=== PATIENT | female | born 1975 | race Caucasian/White ===

== ENCOUNTER → 2016-10-01 | Outpatient (CLI) | payer BC | LOC: YCFC.O 11:35 | PROVIDERS: ATTEND Anesthesiology Pain Medicine | DX: Z79.891 Long term (current) use of opiate analgesic (principal) ==

== ENCOUNTER → 2017-07-10 | Outpatient (CLI) | payer BC | END | disposition home or self-care (01) | LOC: GMAJ 15:06 | PROVIDERS: ATTEND Family Medicine | DX: Z00.00 Encounter for general adult medical examination without abnormal findings (principal) ==

== ENCOUNTER → 2017-07-16 | Outpatient (CLI) | payer BC ==
--- NOTE | 2017-07-17 15:50 | MAM ---
EXAM DESCRIPTION: 3D Screening BILATERAL : Digital Mammography. CLINICAL HISTORY: 41 years Female SCREENING . No complaints. No family history of breast cancer. Premenopausal.. COMPARISON: Baseline study at this facility.. No prior reports available. TECHNIQUE: Bilateral CC and MLO projection full-field images, 3-D tomosynthesis digital mammographic technique. Also bilateral synthesized CC/ MLO full-field images. CAD not utilized. FINDINGS: The breast parenchymal density pattern is: Heterogeneously dense breast tissue, which may obscure small masses. No skin thickening or nipple retraction bilateral solitary microcalcifications. Mass Density or densities in the upper outer quadrant of the posterior third of the left breast at the 130 clock position. Mostly smooth borders with radiolucent breast tissue surrounding the mass. 3.7 cm diameter, slightly more dense than the surrounding tissues, not associated with microcalcifications. 9.4 cm from the nipple. Coarse calcification posterior superior right breast. No focal, stellate mass or density, focal asymmetry , and no suspicious microcalcifications right breast. IMPRESSION: BI-RADS CATEGORY: 0 - INCOMPLETE- Need additional imaging evaluation. FOLLOW-UP: Recall for additional imaging: Targeted of the region of interest upper outer quadrant posterior left breast.. Written communication concerning the IMPRESSION and Follow-up, will be mailed to the patient and referring health care provider. Electronically signed by: Kvng Strong MD 07/17/2017 3:49 PM CDT
== END | disposition home or self-care (01) ==
LOC: MAMMO 10:12
PROVIDERS: ATTEND Family Medicine
DX: Z12.31 Encounter for screening mammogram for malignant neoplasm of breast (principal)
CPT/HCPCS: 77063; G0202

== ENCOUNTER → 2017-07-24 | Outpatient (CLI) | payer BC ==
--- NOTE | 2017-07-25 11:09 | US ---
EXAM DESCRIPTION: Breast,Left: Ultrasound CLINICAL HISTORY: 41 yearsFemaleABNORMAL MAMMO COMPARISON: Digital 3-D tomosynthesis left breast on this visit. 3-D tomosynthesis bilateral screening 07/16/2017. TECHNIQUE: Transcutaneous scanning of the left upper outer quadrant breast utilizing two-dimensional and Doppler modes. Scanning performed by the medical collections with Dr. Strong observation. FINDINGS: Large anechoic mass with well-defined jackson, parallel orientation and posterior acoustic enhancement in the axillary tail at 200 clock position 6 cm posterior to the nipple. Largest dimension 3.2 cm, nonvascular, most likely a cyst. Abutting smaller cyst measuring 7.2 mm. Hypoechoic lobulated mass in the adjacent tissues measuring 6.6 x 4.4 mm with echogenic center but not vascular; probable lymph node. At the 1200 clock position 3 cm from the nipple is a lobulated structure with well-defined jackson, nonvascular. Dimensions are 7.2 x 4.1 cm. Parallel orientation and posterior acoustic enhancement. Possible cystic cluster. IMPRESSION: BI-RADS CATEGORY: 2 - BENIGN FINDINGS. FOLLOW UP: Return to routine digital bilateral mammographic screening, one year interval from June 2017. Written communication explaining the IMPRESSION and follow-up, will be mailed to the patient and referring health care provider. According to the [employer], yearly mammograms are recommended starting at age 40 and continuing as long as a woman is in good health. Any breast change noted on a breast self-exam should be reported promptly to the patient's healthcare provider. Breast MRI is recommended for women with an approximately 20-25% or greater lifetime risk of breast cancer, including women with a strong family history of breast or ovarian cancer and women who have been treated for Hodgkin's disease. A negative mammographic report should not delay tissue diagnosis in patients with significant clinical history or physical findings. Extremely dense breast tissue limits the sensitivity of digital mammography. The FINDINGS and the follow-up plan were reviewed in person with the patient after the examination. Written communication explaining the IMPRESSION and follow-up will be mailed to the patient and referring care provider. Electronically signed by: Kvng Strong MD 07/25/2017 11:07 AM CDT
== END | disposition home or self-care (01) ==
LOC: US 13:31
PROVIDERS: ATTEND Family Medicine

== ENCOUNTER → 2019-07-08 | Outpatient (CLI) | payer BC ==
--- NOTE | 2019-07-10 16:04 | MAM ---
EXAM DESCRIPTION: 3D Screening BILATERAL : Digital Mammography. CLINICAL HISTORY: 43 years Female ANNUAL SCREENING . No complaints. No personal or family history of breast cancer. Menarche 17. Childbirth. Premenopausal. No HRT. Lifetime risk of developing breast cancer (Tyrer-Cuzick model)(%): 10. 0 COMPARISON: Bilateral screening digital breast tomosynthesis 07/16/2017. Diagnostic left breast mammography and ultrasound July 2017. TECHNIQUE: Bilateral CC and MLO projection full-field images, digital tomosynthesis mammographic technique. Bilateral digital 2-D full-field MLO images. CAD not available for tomosynthesis or 2-D images. FINDINGS: The breast parenchymal density pattern is: Heterogeneously dense breast tissue, which may obscure small masses. No skin thickening or nipple retraction. Skin mole posterior upper left breast, and posterior inferior right breast. Bilateral calcifications. The cyst seen in the upper outer quadrant of the posterior third of the left breast on the prior mammogram and ultrasound is enlarging. No change in the margins that are visualized. There are adjacent microcalcifications.. No new focal, stellate mass or density, focal asymmetry , and no suspicious microcalcifications right breast. IMPRESSION: Enlarging mass in the upper outer quadrant of the posterior third of the left breast is most likely a cyst. BI-RADS CATEGORY: 0 - INCOMPLETE- Need additional imaging evaluation. FOLLOW-UP: Recall for additional imaging: Directed left breast ultrasound of the region of interest.. Written communication concerning the IMPRESSION and Follow-up, will be mailed to the patient and referring health care provider. Electronically signed by: Kvng Strong MD 07/10/2019 4:03 PM CDT
== END ==
LOC: MAMMO 08:22
PROVIDERS: ATTEND General Practice
DX: Z12.31 Encounter for screening mammogram for malignant neoplasm of breast (principal)

== ENCOUNTER → 2019-10-19 | Outpatient (CLI) | payer BC ==
--- NOTE | 2019-10-20 13:03 | US ---
EXAM DESCRIPTION: Breast,Left: Ultrasound CLINICAL HISTORY: 44 yearsFemaleABNORMAL MAMMO left breast mass.. No pain or tenderness with mass. Lifetime risk of developing breast cancer (Tyrer-Cuzick model)(%): 0.9. COMPARISON: Bilateral screening digital breast tomosynthesis June 2019 and June 2017. Ultrasound left breast July 2017 TECHNIQUE: Transcutaneous scanning of the left breast utilizing miles-scale and Doppler modes. Scanning performed by the packaging sales ; observation by Dr. Strong. FINDINGS: Ultrasound: Scanning of the left breast. 4.5 x 4.0 cm anechoic circumscribed mass wider than tall orientation posterior acoustic enhancement and nonvascular consistent with a cyst. Approximate volume 13 mL. This mass has enlarged from the prior study where it measured 3.2 x 2.4 cm. Approximate volume 3.3 mL. A second cyst is abutting the larger cyst measuring 9.5 x 6.3 mm. This cyst measured 7.7 x 7.2 mm on the prior study. IMPRESSION: Benign exam. Enlarging cyst in the left breast, from 3.3 mL to 13 mL, over 26 month interval. Nontender. BIRAD CATEGORY: 2 BENIGN FINDINGS. RECOMMENDATIONS: FOLLOW UP: Return to routine digital bilateral mammographic screening, one year interval from June 2019. Written communication explaining the IMPRESSION and follow-up, will be mailed to the patient and referring health care provider. The FINDINGS and the FOLLOW-UP plan were reviewed in person with the patient after the examination. According to the [employer], yearly mammograms are recommended starting at age 40 and continuing as long as a woman is in good health. Any breast change noted on a breast self-exam should be reported promptly to the patient's healthcare provider. Breast MRI is recommended for women with an approximately 20-25% or greater lifetime risk of breast cancer, including women with a strong family history of breast or ovarian cancer and women who have been treated for Hodgkin's disease. A negative mammographic report should not delay tissue diagnosis in patients with significant clinical history or physical findings. Extremely dense breast tissue limits the sensitivity of digital mammography. Electronically signed by: Kvng Strong MD 10/20/2019 1:01 PM [facility]
== END ==
LOC: US 11:30
PROVIDERS: ATTEND General Practice
DX: N60.02 Solitary cyst of left breast (principal)

== ENCOUNTER → 2020-11-17 | Outpatient (CLI) | payer BC ==
--- NOTE | 2020-11-17 13:46 | US ---
EXAM DESCRIPTION: 3D Diagnostic, Bilateral (accession [id number]), Breast,Left (accession [id number]): Ultrasound CLINICAL HISTORY: 45 yearsFemaleLT BREAST LUMP . Tenderness and left breast enlarging compared to the right. No personal or family history of breast cancer. Menarche age 17. Childbirth age 23. Premenopausal. No HRT. Lifetime risk of developing breast cancer (Tyrer-Cuzick model)(%): 8.0. COMPARISON: Bilateral 3-D screening tomosynthesis mammogram June 2017 and June 2019. Diagnostic tomosynthesis and ultrasound left breast July 2017 and September 2019. TECHNIQUE: Bilateral LM, CC, and MLO projection full-field images, digital tomosynthesis technique. Bilateral 2-D digital full-field images: LM, CC, and MLO projections. CAD available for 2-D images.. Transcutaneous scanning of the left breast utilizing miles-scale and Doppler modes. Scanning performed by the public address system installer ; observation by Dr. Strong. FINDINGS: The breast parenchymal density pattern is: Heterogeneously dense breast tissue, which may obscure small masses. Solitary microcalcifications. Coarse microcalcifications. Axillary nodes. Again noted is a large mostly circumscribed mass in the upper outer quadrant of the posterior third of the left breast in the vicinity of the superior left pectoral muscle. Transverse measurement is 5.1 x 3.2 cm on the CC image, and 4.1 cm on the MLO image. Increasing heterogeneous calcifications are visualized in the lateral anterior inferior aspect of the cyst wall. No skin thickening or nipple retraction No new focal, stellate mass or density, focal asymmetry , and no suspicious microcalcifications right breast. Ultrasound: Circumscribed anechoic mass upper outer quadrant posterior third left breast measuring 4.4 x 2.2 cm in the radial plane and 5.1 cm antiradial plane. 4.0 x 4.5 cm on the prior examination. Nonvascular. Normal posterior echogenic enhancement. Part of intramedullary dictation. The small group of microcalcifications seen on the digital mammographic images were not detected. The centimeter cyst seen on the prior study was not visualized. IMPRESSION: BIRAD CATEGORY 4: SUSPICIOUS. Sub-category 4A - Low Suspicion For Malignancy. RECOMMENDATION: Surgical consultation and tissue diagnosis if there are no clinical contraindications. The FINDINGS and FOLLOW-UP plan were reviewed in person with the patient following the examination. Written communication explaining the IMPRESSION and FOLLOW-UP will be mailed to the patient and referring health care provider. CRITICAL COMMUNICATION: The critical value was communicated by PANCHO Johansen, via phone call, with Dr. Muller's office nurse, Vivian , at approximately 1145 hours, on April 16, 2021. Electronically signed by: Kvng Strong MD 11/17/2020 1:44 PM [facility]
== END ==
LOC: US 08:49
PROVIDERS: ATTEND Nurse Practitioner Family
DX: R92.8 Other abnormal and inconclusive findings on diagnostic imaging of breast (principal)
CPT/HCPCS: 76641; 77066; G0279